=== PATIENT | female | born 1985 | race African-American/Black ===

== ENCOUNTER 2016-10-30 21:52 | Emergency (ER) | payer SELFPAY ==
[~2016-10-30] VITALS: Ht 177.8 cm; Wt 104.3 kg
[~2016-10-30 21:52] MED LIST: CLON2TAB PO; LEVE1000 PO
--- NOTE | 2016-10-30 22:08 | NUR ---
AMBULATORY TO ER BED 21 C/O LOWER ABDOMINAL/PELVIC PAIN W/ VAGINAL BLEEDING X TODAY. GOWNED AND PLACED ON MONITOR. NAD NOTED. AWAITING MD BIRCH.
--- NOTE | 2016-10-30 22:13 | NUR ---
DR LLOYD AT BEDSIDE FOR EVAL.
--- NOTE | 2016-10-30 22:15 | NUR ---
CALLED RADIOLOGY TO INFORM THEM OF PELVIS US
--- NOTE | 2016-10-30 22:20 | NUR ---
PT REFUSING BLOOD DRAW. DR LLOYD MADE AWARE.
[2016-10-30 22:28] LABS: APPEARANCE,URINE SL CLOUDY (CLEAR); BILIRUBIN,URINE NEGATIVE (NEGATIVE); BLOOD, URINE NEGATIVE Ery/uL (NEGATIVE); COLOR,URINE YELLOW (YELLOW); KETONES,URINE NEGATIVE (NEGATIVE); LEUKOCYTE ESTERASE ,URINE NEGATIVE (NEGATIVE); NITRITE, URINE NEGATIVE (NEGATIVE); PROTEIN,URINE NEGATIVE (NEGATIVE); UGLUCOSE NEGATIVE (NEGATIVE); UROBILINOGEN,URINE 0.2 EU/dL (0.2)
[2016-10-30] MEDS ORDERED: IV NS 0.9% 500 ML BAG IV ONE (22:30)
[2016-10-30] MEDS ORDERED: ONDANSETRON HCL/PF 4 MG/2 ML VIAL IVP ONE (22:30)
--- NOTE | 2016-10-30 22:33 | NUR ---
U/S TECH AT BEDSIDE FOR PELVIC ULTRASOUND.
[2016-10-30 22:48] LABS: PREGNANCY TEST URINE QUAL NEGATIVE (NEGATIVE)
[2016-10-30] MEDS ORDERED: ACETAMINOPHEN ES 500 MG TABLET ONE (22:52)
[2016-10-30] MEDS ORDERED: ACETAMINOPHEN 325 MG TABLET PO ONE (23:00)
[2016-10-30 23:10] VITALS: BP 132/77
--- NOTE | 2016-10-30 23:10 | NUR ---
Patient discharged to home in stable condition. Written and verbal after care instructions given. Patient verbalizes understanding of instruction.
== END 2016-10-30 23:11 | disposition home or self-care (01) ==
LOC: ER 21:54
DX: N93.9 Abnormal uterine and vaginal bleeding, unspecified (principal); G40.909 Epilepsy, unspecified, not intractable, without status epilepticus; J45.909 Unspecified asthma, uncomplicated; Z88.0 Allergy status to penicillin
CPT/HCPCS: 76856-TC; 81000-TC; 84703-TC; A4606; Z7610

== ENCOUNTER 2019-03-16 17:50 | Emergency (ER) | payer MEDICAID, OTHER ==
[~2019-03-16] VITALS: Ht 162.6 cm; Wt 117.0 kg
--- NOTE | 2019-03-16 18:12 | NUR ---
SEEN BY DR NOLAN, PT IS REFUSING TEST.
--- NOTE | 2019-03-16 18:20 | NUR ---
MEDICALLY CLEARED BY DR NOLAN. D/C TO PD IN STABLE CONDITION.
[2019-03-16 18:21] VITALS: BP 144/99
== END 2019-03-16 18:26 ==
LOC: ER 17:50
DX: N93.9 Abnormal uterine and vaginal bleeding, unspecified (principal); G40.909 Epilepsy, unspecified, not intractable, without status epilepticus; J45.909 Unspecified asthma, uncomplicated; Z98.890 Other specified postprocedural states; Z88.0 Allergy status to penicillin; Z79.899 Other long term (current) drug therapy

== ENCOUNTER 2019-03-18 16:00 | Emergency (ER) | payer OTHER, MEDICAID ==
[~2019-03-18] VITALS: Ht 162.6 cm; Wt 117.9 kg
--- NOTE | 2019-03-18 16:00 | NUR ---
BIB [address] AND [employer] OFF[employer], SEIZURE WHILE IN COURT,BLOOD SUGAR 100, TO ER BED 11, HOOKED TO MONITOR, CHANGED TO GOWN, PROVIDED W WARM BLANKET, SEIZURE PRECAUTIONS APPLIED. AWAITING MD BIRCH
--- NOTE | 2019-03-18 17:52 | NUR ---
TI SCHNEIDER AT BEDSIDE
[2019-03-18] MEDS ORDERED: LEVETIRACETAM (250 MG) 250 MG TABLET PO ONE ×3 (18:00→18:07)
[2019-03-18] MEDS ORDERED: clonazePAM 1 MG TABLET PO ONE (18:00)
[2019-03-18] MEDS ORDERED: clonazePAM 1 MG TABLET ONE (18:07)
--- NOTE | 2019-03-18 18:55 | NUR ---
PT. VERBALIZED UNDERSTANDING OF AFTERCARE INSTRUCTIONS.Patient discharged to custody of [facility] in stable condition. Written and verbal after care instructions given. Patient verbalizes understanding of instruction.
[2019-03-18 18:58] VITALS: BP 174/86
--- NOTE | 2019-03-18 18:58 | NUR ---
Patient discharged in custody of [facility] Officer [id number] in stable condition. Written and verbal after care instructions given. Patient and officer verbalizes understanding of instruction.
== END 2019-03-18 18:59 ==
LOC: ER 16:05
DX: G40.909 Epilepsy, unspecified, not intractable, without status epilepticus (principal); J45.909 Unspecified asthma, uncomplicated; Z98.890 Other specified postprocedural states; Z88.0 Allergy status to penicillin

== ENCOUNTER 2022-01-28 12:41 | Emergency (ER) | payer MEDICAID, OTHER ==
[~2022-01-28] VITALS: Ht 177.8 cm; Wt 132.9 kg
--- NOTE | 2022-01-28 12:50 | NUR ---
36 yrs femal came by ebl and JOHANNA 2 OFFECER AT [facility]
--- NOTE | 2022-01-28 13:00 | NUR ---
PT UNCOOPRATIVE HEARE TO STARE IV LINE
--- NOTE | 2022-01-28 15:00 | NUR ---
PT REFUSED BLOOD TO DROW CALLED [facility]
--- NOTE | 2022-01-28 15:05 | NUR ---
DR. TAMEKA GOMEZ BP 193/101 HR 62 B/MIN
--- NOTE | 2022-01-28 15:30 | NUR ---
[employer] AT BED SIDE OFFECER HAYLEE ([id number]) AND OFFECER EKLE [id number] [place] [employer]
--- NOTE | 2022-01-28 15:30 | NUR ---
INSERTED MIDLINE ON RT UPPET ARM
[2022-01-28 15:33] LABS: BASOPHILS # (AUTO) 0.1 K/uL (0.0-0.2); BASOPHILS % (AUTO) 1.2 % (0.0-2.0); EOSINOPHILS % (AUTO) 3.1 % (0.0-6.0); HEMATOCRIT 37 % (33-45); LYMPHOCYTES # (AUTO) 1.3 K/uL (0.8-4.8); LYMPHOCYTES % (AUTO) 27.6 % (20.0-44.0); MEAN CORPUSCULAR HGB CONC 32 g/dl (31.0-36.0); MEAN CORPUSCULAR VOLUME 73 fL (82-100); MONOCYTES # (AUTO) 0.8 K/uL (0.1-1.30); MONOCYTES % (AUTO) 16.7 % (2.0-12.0); NEUTROPHILS # (AUTO) 2.4 K/uL (1.8-8.9); NEUTROPHILS % (AUTO) 51.4 % (43.0-81.0); PLATELET COUNT (AUTO) 226 K/uL (150-450); RED BLOOD CELL COUNT(AUTO) 5.07 MIL/uL (4.0-5.2); WHITE BLOOD COUNT (AUTO) 4.7 K/uL (4.3-11.0)
[2022-01-28 15:54] LABS: CALCIUM, SERUM 9.2 mg/dL (8.5-10.1); CARBON DIOXIDE 28 mmol/L (21-32); CHLORIDE 104 mmol/L (98-107); CREATININE 0.7 mg/dL (0.6-1.3); GLUCOSE 93 mg/dL (74-106); POTASSIUM 3.4 mmol/L (3.5-5.1); SODIUM SERUM 142 mmol/L (136-145); UREA NITROGEN, BLOOD 5 mg/dL (7-18)
[2022-01-28 15:56] LABS: ALCOHOL, BLOOD < 3 mg/dL (0-0)
--- NOTE | 2022-01-28 17:16 | NUR ---
DR. MARQUES AND SHAHID NOTEFY ABOUT BP 196/108 [facility] NOTEFY AND AWARE
--- NOTE | 2022-01-28 18:31 | NUR ---
PT OK TO BOOCK DINISES ANY PAIN OR HEADCK NO WEEKNEESS
[2022-01-28 18:49] VITALS: BP 153/118
--- NOTE | 2022-01-28 18:50 | NUR ---
D/C HL DONE PT CODITION STABLE AWAKE AND ALERT
--- NOTE | 2022-01-28 18:50 | NUR ---
D/C INSTRACTION and fallow up care given to pt and [employer] NO ACTIVE SEIZER NO WEEKNESS D/C HOME WITH HAND CAFF
== END 2022-01-28 18:55 ==
LOC: ER 12:43
DX: G40.909 Epilepsy, unspecified, not intractable, without status epilepticus (principal); J45.909 Unspecified asthma, uncomplicated; Z98.890 Other specified postprocedural states; Z88.0 Allergy status to penicillin; Z79.899 Other long term (current) drug therapy
CPT/HCPCS: 36415; 80048-TC; 85025-TC; G0480